=== PATIENT | male | born 1965 | race Caucasian/White ===

== ENCOUNTER 2018-02-09 09:45 | Outpatient (RCR) | payer BC ==
[2018-01-23 09:47] LABS: BASOPHILS % (AUTO) 0 % (0-10); EOSINOPHILS # (AUTO) 0.1 10^3/uL (0.0-0.3); EOSINOPHILS % (AUTO) 1 % (0-10); HEMATOCRIT 33 % (40-54); LYMPHOCYTES # (AUTO) 1.2 X 10^3 (1.0-4.0); LYMPHOCYTES % (AUTO) 20 % (12-44); MEAN CORPUSCULAR HEMOGLOBIN 33 PG (25-34); MEAN CORPUSCULAR HGB CONC 34 G/DL (32-36); MEAN CORPUSCULAR VOLUME 98 FL (80-99); MEAN PLATELET VOLUME 8.6 FL (7.4-10.4); MONOCYTES # (AUTO) 0.4 X 10^3 (0.0-1.0); MONOCYTES % (AUTO) 8 % (0-12); NEUTROPHILS # (AUTO) 4.1 X 10^3 (1.8-7.8); NEUTROPHILS % (AUTO) 71 % (42-75); PLATELET COUNT 230 10^3/uL (130-400); RED BLOOD COUNT 3.31 10^6/uL (4.35-5.85); WHITE BLOOD COUNT 5.8 10^3/uL (4.3-11.0)
[~2018-02-09] VITALS: Ht 173.4 cm; Wt 60.8 kg
[2018-02-09 15:08] LABS: BASOPHILS % (AUTO) 1 % (0-10); EOSINOPHILS % (AUTO) 1 % (0-10); HEMATOCRIT 30 % (40-54); LYMPHOCYTES # (AUTO) 1.5 X 10^3 (1.0-4.0); LYMPHOCYTES % (AUTO) 45 % (12-44); MEAN CORPUSCULAR HEMOGLOBIN 34 PG (25-34); MEAN CORPUSCULAR HGB CONC 34 G/DL (32-36); MEAN CORPUSCULAR VOLUME 101 FL (80-99); MONOCYTES # (AUTO) 0.5 X 10^3 (0.0-1.0); MONOCYTES % (AUTO) 14 % (0-12); NEUTROPHILS # (AUTO) 1.3 X 10^3 (1.8-7.8); NEUTROPHILS % (AUTO) 40 % (42-75); PLATELET COUNT 81 10^3/uL (130-400); RED BLOOD COUNT 2.92 10^6/uL (4.35-5.85); RED CELL DISTRIBUTION WIDTH 19.6 % (10.0-14.5); WHITE BLOOD COUNT 3.4 10^3/uL (4.3-11.0)
[2018-02-09 15:26] LABS: BUN/CREATININE RATIO 10; CALCIUM 9.6 MG/DL (8.5-10.1); CARBON DIOXIDE 22 MMOL/L (21-32); CHLORIDE 107 MMOL/L (98-107); CREATININE SERUM 0.77 MG/DL (0.60-1.30); GFR ESTIMATED > 60; GLUCOSE 84 MG/DL (70-105); POTASSIUM 3.6 MMOL/L (3.6-5.0); SODIUM 140 MMOL/L (135-145)
[2018-02-15] MEDS ORDERED: CARBOPLATIN 425 MG in D5W 50 ML IV(CANCER CTR) 50 ML IV SCH (08:45)
[2018-02-15] MEDS ORDERED: PALONOSETRON HCL 0.25 MG, DEXAMETHASONE INJECTION 10 MG in NS (IVPB) CANCER CENTER 50 ML IV SCH ×6 (08:45)
[2018-02-15] MEDS ORDERED: ONDANSETRON MDV (CANCER CENTER 16 MG, DEXAMETHASONE INJECTION 10 MG in NS (IVPB) CANCER... IV SCH (08:45)
[2018-02-15] MEDS ORDERED: ETOPOSIDE 170 MG in NORMAL SALINE (CANCER CENTER) 500 ML IV SCH (08:45)
[2018-02-15] MEDS ORDERED: NS IV 1000 ML (CANCER CTR) IV SCH (08:45)
== END 2018-02-15 09:01 | disposition home or self-care (01) ==
LOC: ONC 09:45
PROVIDERS: ATTEND Internal Medicine Hematology & Oncology
DX: C34.90 Malignant neoplasm of unspecified part of unspecified bronchus or lung (principal); D70.9 Neutropenia, unspecified
CPT/HCPCS: 36415; 80048; 85025; 99214

== ENCOUNTER → 2018-03-10 | Outpatient (CLI) | payer BC, OTHER ==
[~2018-03-10] MED LIST: CATHETER FLUSH 10 ML SYR IV PRN
--- NOTE | 2018-03-10 13:41 | Diagnostic Imaging Report ---
INDICATION: Small cell lung carcinoma. EXAMINATION: Axial imaging through the neck, chest, abdomen and pelvis was performed after the administration of intravenous contrast. COMPARISON: Correlation is made with prior CT chest, abdomen and pelvis from [facility] on 10/28/2017. No prior CT neck study is available for comparison. FINDINGS: CT neck: The visualized intracranial structures are unremarkable. The posterior nasopharynx and oropharynx are unremarkable. The larynx is unremarkable. No thyroid mass is identified. Submandibular and parotid glands appear to be symmetric. No definite jugulodigastric or posterior cervical lymphadenopathy is seen. There are soft tissue masses in the left supraclavicular region suggestive of enlarged lymph nodes. Largest loreta mass measures approximately 3.1 cm AP x 3.6 cm transverse, image 60 series 4. Solitary node just cephalad to the loreta mass is seen measuring 1.3 x 1.8 cm, image 54 series 4. IMPRESSION: Unremarkable CT of the neck apart from left supraclavicular lymphadenopathy. CT chest: No axillary lymphadenopathy is seen. Bulky mass within the mediastinum is again noted. The anterior component, anterior to the great vessels does appear smaller measuring 3.0 x 1.9 cm compared with 4.3 x 3.0 cm. Larger component in the middle mediastinum abutting the trachea anteriorly as well as on the right and left appears larger measuring 6.9 cm AP x 6.6 cm transverse compared with 4.4 x 5.9 cm. There is a large component which extends into the AP window. There is also large component in the subcarinal and left hilar region. Subcarinal component does contain some calcifications. This portion does appear to be slightly smaller measuring 7.6 x 3.6 cm compared with 9.9 x 3.8 cm. There continues to be encasement of left lower lobe bronchus with collapse of the left lower lobe. There is chronic inspissated mucus filling multiple segmental and subsegmental bronchi to the left lower lobe, similar to prior exam. Consolidated left lower lobe is inseparable from the left hilar mass component. Right hilum is unremarkable. There is a pericardial effusion measuring to a thickness of 17 mm compared with 11 mm on prior. Trace pleural fluid on the left is also seen. No right-sided effusion is identified. Centrilobular emphysematous changes in both lungs are noted. IMPRESSION: Mixed findings. Portions of the bulky mediastinal mass are smaller and other portions appear to be larger. There continues to be encasement and obstruction of the left lower lobe bronchus with complete collapse of the left lower lobe with chronic inspissated mucus within the left lower lobe. This is similar to prior. The pericardial effusion has increased since prior exam. CT abdomen and pelvis: No discrete liver mass is identified. The gallbladder is unremarkable. Abnormal soft tissue is noted at the level of the pancreatic body measuring approximately 3.9 cm AP x 3.5 cm transverse. This compares with 3.2 x 2.9 cm when measured by the same technique. No pancreatic ductal dilatation is seen. Spleen is unremarkable. No adrenal mass is identified. The kidneys are unremarkable. Aorta is nonaneurysmal. Bowel loops are normal caliber. No obstruction is seen. There is no ascites. No pelvic lymphadenopathy is seen. There is generalized bladder wall thickening, nonspecific. IMPRESSION: There has been some slight increase in prominence of abnormal soft tissue at the level of the pancreatic body when compared with exam from 10/28/2017. No hepatic masses are seen. No other areas of abnormality are detected. There is generalized bladder wall thickening which can be seen with cystitis versus chronic bladder outlet obstruction. Dictated by: Dictated on workstation # [id number]
--- NOTE | 2018-03-10 14:44 | Diagnostic Imaging Report ---
INDICATION: Small cell lung carcinoma. TECHNIQUE: Patient was administered 26.7 mCi technetium 99m MDP intravenously and whole-body imaging was performed after a three-hour delay. COMPARISON: No prior bone scans are available for comparison. FINDINGS: Normal uptake of activity by the axial and appendicular skeleton is seen. There is uptake by both kidneys with excretion into the urinary bladder. There are degenerative changes involving the medial compartment of the right knee. Mild uptake in the midthoracic spine is noted which may be degenerative as well. No foci are identified to suggest osseous metastatic disease. IMPRESSION: No scintigraphic evidence of osseous metastatic disease. Dictated by: Dictated on workstation # [id number]
== END ==
LOC: CARD 10:38
PROVIDERS: ATTEND Internal Medicine Hematology & Oncology
DX: Z01.89 Encounter for other specified special examinations (principal); C34.90 Malignant neoplasm of unspecified part of unspecified bronchus or lung; C77.9 Secondary and unspecified malignant neoplasm of lymph node, unspecified
CPT/HCPCS: 70491; 71260; 74176; 78306

== ENCOUNTER → 2018-03-20 | Outpatient (CLI) | payer OTHER | LOC: CARD 08:57 | PROVIDERS: ATTEND Internal Medicine Hematology & Oncology | DX: I31.3 Pericardial effusion (noninflammatory) (principal); I08.1 Rheumatic disorders of both mitral and tricuspid valves | CPT/HCPCS: 93306 ==

== ENCOUNTER 2018-03-27 10:33 | Outpatient (RCR) | payer BC, OTHER ==
[2018-02-20 11:32] LABS: BASOPHILS % (AUTO) 1 % (0-10); EOSINOPHILS # (AUTO) 0.1 10^3/uL (0.0-0.3); EOSINOPHILS % (AUTO) 1 % (0-10); HEMATOCRIT 34 % (40-54); HEMOGLOBIN 11.8 G/DL (13.3-17.7); LYMPHOCYTES # (AUTO) 1.2 X 10^3 (1.0-4.0); LYMPHOCYTES % (AUTO) 20 % (12-44); MEAN CORPUSCULAR HEMOGLOBIN 36 PG (25-34); MEAN CORPUSCULAR HGB CONC 35 G/DL (32-36); MEAN CORPUSCULAR VOLUME 103 FL (80-99); MEAN PLATELET VOLUME 9.3 FL (7.4-10.4); MONOCYTES # (AUTO) 0.5 X 10^3 (0.0-1.0); MONOCYTES % (AUTO) 7 % (0-12); NEUTROPHILS # (AUTO) 4.5 X 10^3 (1.8-7.8); NEUTROPHILS % (AUTO) 71 % (42-75); PLATELET COUNT 220 10^3/uL (130-400); RED BLOOD COUNT 3.27 10^6/uL (4.35-5.85); RED CELL DISTRIBUTION WIDTH 19.8 % (10.0-14.5); WHITE BLOOD COUNT 6.3 10^3/uL (4.3-11.0)
[2018-02-20 11:50] LABS: ALANINE AMINOTRANSFERASE 11 U/L (0-55); ALBUMIN 4.4 GM/DL (3.2-4.5); ALKALINE PHOSPHATASE 97 U/L (40-136); BILIRUBIN,TOTAL 0.3 MG/DL (0.1-1.0); BUN/CREATININE RATIO 10; CALCIUM 9.9 MG/DL (8.5-10.1); CARBON DIOXIDE 24 MMOL/L (21-32); CHLORIDE 106 MMOL/L (98-107); CREATININE SERUM 0.77 MG/DL (0.60-1.30); GFR ESTIMATED > 60; GLUCOSE 120 MG/DL (70-105); POTASSIUM 3.9 MMOL/L (3.6-5.0); SODIUM 138 MMOL/L (135-145); TOTAL PROTEIN 7.5 GM/DL (6.4-8.2)
[2018-02-27 10:04] LABS: BASOPHILS % (AUTO) 0 % (0-10); EOSINOPHILS # (AUTO) 0.1 10^3/uL (0.0-0.3); EOSINOPHILS % (AUTO) 2 % (0-10); HEMATOCRIT 30 % (40-54); LYMPHOCYTES # (AUTO) 1.1 X 10^3 (1.0-4.0); LYMPHOCYTES % (AUTO) 20 % (12-44); MEAN CORPUSCULAR HEMOGLOBIN 36 PG (25-34); MEAN CORPUSCULAR HGB CONC 33 G/DL (32-36); MEAN CORPUSCULAR VOLUME 106 FL (80-99); MEAN PLATELET VOLUME 8.8 FL (7.4-10.4); MONOCYTES # (AUTO) 0.1 X 10^3 (0.0-1.0); MONOCYTES % (AUTO) 2 % (0-12); NEUTROPHILS % (AUTO) 76 % (42-75); PLATELET COUNT 257 10^3/uL (130-400); RED BLOOD COUNT 2.81 10^6/uL (4.35-5.85); RED CELL DISTRIBUTION WIDTH 18.4 % (10.0-14.5); WHITE BLOOD COUNT 5.3 10^3/uL (4.3-11.0)
[2018-02-27 10:16] LABS: BUN/CREATININE RATIO 10; CALCIUM 9.7 MG/DL (8.5-10.1); CARBON DIOXIDE 26 MMOL/L (21-32); CHLORIDE 106 MMOL/L (98-107); GFR ESTIMATED > 60; GLUCOSE 122 MG/DL (70-105); POTASSIUM 4.1 MMOL/L (3.6-5.0); SODIUM 138 MMOL/L (135-145)
[2018-03-07 10:58] LABS: BASOPHILS % (AUTO) 1 % (0-10); EOSINOPHILS # (AUTO) 0.1 10^3/uL (0.0-0.3); EOSINOPHILS % (AUTO) 2 % (0-10); HEMATOCRIT 33 % (40-54); HEMOGLOBIN 11.1 G/DL (13.3-17.7); LYMPHOCYTES # (AUTO) 0.8 X 10^3 (1.0-4.0); LYMPHOCYTES % (AUTO) 33 % (12-44); MEAN CORPUSCULAR HEMOGLOBIN 36 PG (25-34); MEAN CORPUSCULAR HGB CONC 33 G/DL (32-36); MEAN CORPUSCULAR VOLUME 107 FL (80-99); MEAN PLATELET VOLUME 8.6 FL (7.4-10.4); MONOCYTES # (AUTO) 0.3 X 10^3 (0.0-1.0); MONOCYTES % (AUTO) 10 % (0-12); NEUTROPHILS # (AUTO) 1.3 X 10^3 (1.8-7.8); NEUTROPHILS % (AUTO) 54 % (42-75); PLATELET COUNT 162 10^3/uL (130-400); RED CELL DISTRIBUTION WIDTH 18.3 % (10.0-14.5); WHITE BLOOD COUNT 2.4 10^3/uL (4.3-11.0)
[2018-03-07 11:19] LABS: BUN/CREATININE RATIO 12; CALCIUM 9.9 MG/DL (8.5-10.1); CARBON DIOXIDE 25 MMOL/L (21-32); CHLORIDE 107 MMOL/L (98-107); CREATININE SERUM 0.75 MG/DL (0.60-1.30); GFR ESTIMATED > 60; GLUCOSE 99 MG/DL (70-105); SODIUM 140 MMOL/L (135-145)
[2018-03-13 11:11] LABS: BASOPHILS % (AUTO) 0 % (0-10); EOSINOPHILS # (AUTO) 0.1 10^3/uL (0.0-0.3); EOSINOPHILS % (AUTO) 2 % (0-10); HEMATOCRIT 35 % (40-54); HEMOGLOBIN 11.7 G/DL (13.3-17.7); LYMPHOCYTES % (AUTO) 33 % (12-44); MEAN CORPUSCULAR HEMOGLOBIN 36 PG (25-34); MEAN CORPUSCULAR HGB CONC 34 G/DL (32-36); MEAN CORPUSCULAR VOLUME 107 FL (80-99); MEAN PLATELET VOLUME 8.7 FL (7.4-10.4); MONOCYTES # (AUTO) 0.4 X 10^3 (0.0-1.0); MONOCYTES % (AUTO) 14 % (0-12); NEUTROPHILS # (AUTO) 1.5 X 10^3 (1.8-7.8); NEUTROPHILS % (AUTO) 52 % (42-75); PLATELET COUNT 190 10^3/uL (130-400); RED BLOOD COUNT 3.24 10^6/uL (4.35-5.85); RED CELL DISTRIBUTION WIDTH 17.5 % (10.0-14.5)
[2018-03-13 11:31] LABS: ALANINE AMINOTRANSFERASE 7 U/L (0-55); ALBUMIN 4.3 GM/DL (3.2-4.5); ALKALINE PHOSPHATASE 97 U/L (40-136); BILIRUBIN,TOTAL 0.3 MG/DL (0.1-1.0); BUN/CREATININE RATIO 9; CALCIUM 9.8 MG/DL (8.5-10.1); CARBON DIOXIDE 24 MMOL/L (21-32); CHLORIDE 108 MMOL/L (98-107); CREATININE SERUM 0.76 MG/DL (0.60-1.30); GFR ESTIMATED > 60; GLUCOSE 103 MG/DL (70-105); POTASSIUM 3.9 MMOL/L (3.6-5.0); SODIUM 139 MMOL/L (135-145); TOTAL PROTEIN 7.2 GM/DL (6.4-8.2)
[2018-03-15 12:30] LABS: BUN/CREATININE RATIO 13; CALCIUM 9.6 MG/DL (8.5-10.1); CARBON DIOXIDE 22 MMOL/L (21-32); CHLORIDE 107 MMOL/L (98-107); CREATININE SERUM 0.77 MG/DL (0.60-1.30); GFR ESTIMATED > 60; GLUCOSE 84 MG/DL (70-105); POTASSIUM 3.6 MMOL/L (3.6-5.0); SODIUM 140 MMOL/L (135-145)
[2018-03-15 12:31] LABS: BASOPHILS % (AUTO) 1 % (0-10); EOSINOPHILS % (AUTO) 1 % (0-10); HEMATOCRIT 30 % (40-54); LYMPHOCYTES # (AUTO) 1.5 X 10^3 (1.0-4.0); LYMPHOCYTES % (AUTO) 45 % (12-44); MEAN CORPUSCULAR HEMOGLOBIN 34 PG (25-34); MEAN CORPUSCULAR HGB CONC 34 G/DL (32-36); MEAN CORPUSCULAR VOLUME 101 FL (80-99); MONOCYTES # (AUTO) 0.5 X 10^3 (0.0-1.0); MONOCYTES % (AUTO) 14 % (0-12); NEUTROPHILS # (AUTO) 1.3 X 10^3 (1.8-7.8); NEUTROPHILS % (AUTO) 40 % (42-75); PLATELET COUNT 81 10^3/uL (130-400); RED BLOOD COUNT 2.92 10^6/uL (4.35-5.85); RED CELL DISTRIBUTION WIDTH 19.6 % (10.0-14.5); WHITE BLOOD COUNT 3.4 10^3/uL (4.3-11.0)
[2018-03-20 10:17] LABS: BASOPHILS % (AUTO) 0 % (0-10); EOSINOPHILS % (AUTO) 1 % (0-10); HEMATOCRIT 34 % (40-54); HEMOGLOBIN 11.3 G/DL (13.3-17.7); LYMPHOCYTES # (AUTO) 1.1 X 10^3 (1.0-4.0); LYMPHOCYTES % (AUTO) 23 % (12-44); MEAN CORPUSCULAR HEMOGLOBIN 36 PG (25-34); MEAN CORPUSCULAR HGB CONC 33 G/DL (32-36); MEAN CORPUSCULAR VOLUME 109 FL (80-99); MEAN PLATELET VOLUME 9.1 FL (7.4-10.4); MONOCYTES # (AUTO) 0.1 X 10^3 (0.0-1.0); MONOCYTES % (AUTO) 2 % (0-12); NEUTROPHILS # (AUTO) 3.4 X 10^3 (1.8-7.8); NEUTROPHILS % (AUTO) 74 % (42-75); PLATELET COUNT 228 10^3/uL (130-400); RED BLOOD COUNT 3.11 10^6/uL (4.35-5.85); RED CELL DISTRIBUTION WIDTH 15.3 % (10.0-14.5); WHITE BLOOD COUNT 4.6 10^3/uL (4.3-11.0)
[2018-03-20 10:41] LABS: BUN/CREATININE RATIO 11; CALCIUM 9.8 MG/DL (8.5-10.1); CARBON DIOXIDE 26 MMOL/L (21-32); CHLORIDE 106 MMOL/L (98-107); GFR ESTIMATED > 60; GLUCOSE 96 MG/DL (70-105); POTASSIUM 4.2 MMOL/L (3.6-5.0); SODIUM 139 MMOL/L (135-145)
[~2018-03-27] VITALS: Ht 173.4 cm; Wt 60.8 kg
[~2018-03-27 10:33] MED LIST changes: +CARBOPLATIN 425 MG in D5W 50 ML IV(CANCER CTR) 50 ML IV SCH; -CATHETER FLUSH 10 ML SYR IV PRN; +ETOPOSIDE 170 MG in NORMAL SALINE (CANCER CENTER) 500 ML IV SCH; +NS IV 1000 ML (CANCER CTR) IV SCH; +ONDANSETRON MDV (CANCER CENTER 16 MG, DEXAMETHASONE INJECTION 10 MG in NS (IVPB) CANCER... IV SCH; +PALONOSETRON HCL 0.25 MG, DEXAMETHASONE INJECTION 10 MG in NS (IVPB) CANCER CENTER 50 ML IV SCH
[2018-03-27 10:41] LABS: BASOPHILS % (AUTO) 1 % (0-10); EOSINOPHILS % (AUTO) 2 % (0-10); HEMATOCRIT 34 % (40-54); HEMOGLOBIN 11.7 G/DL (13.3-17.7); LYMPHOCYTES # (AUTO) 0.9 X 10^3 (1.0-4.0); LYMPHOCYTES % (AUTO) 38 % (12-44); MEAN CORPUSCULAR HEMOGLOBIN 37 PG (25-34); MEAN CORPUSCULAR HGB CONC 34 G/DL (32-36); MEAN CORPUSCULAR VOLUME 108 FL (80-99); MEAN PLATELET VOLUME 8.9 FL (7.4-10.4); MONOCYTES # (AUTO) 0.4 X 10^3 (0.0-1.0); MONOCYTES % (AUTO) 15 % (0-12); NEUTROPHILS % (AUTO) 44 % (42-75); PLATELET COUNT 139 10^3/uL (130-400); RED BLOOD COUNT 3.15 10^6/uL (4.35-5.85); RED CELL DISTRIBUTION WIDTH 14.5 % (10.0-14.5); WHITE BLOOD COUNT 2.3 10^3/uL (4.3-11.0)
[2018-03-27 11:02] LABS: BUN/CREATININE RATIO 9; CARBON DIOXIDE 27 MMOL/L (21-32); CHLORIDE 106 MMOL/L (98-107); CREATININE SERUM 0.77 MG/DL (0.60-1.30); GFR ESTIMATED > 60; GLUCOSE 97 MG/DL (70-105); SODIUM 140 MMOL/L (135-145)
[2018-04-03 13:08] LABS: BASOPHILS % (AUTO) 1 % (0-10); EOSINOPHILS # (AUTO) 0.1 10^3/uL (0.0-0.3); EOSINOPHILS % (AUTO) 1 % (0-10); HEMATOCRIT 37 % (40-54); HEMOGLOBIN 12.5 G/DL (13.3-17.7); LYMPHOCYTES # (AUTO) 1.1 X 10^3 (1.0-4.0); LYMPHOCYTES % (AUTO) 28 % (12-44); MEAN CORPUSCULAR HEMOGLOBIN 37 PG (25-34); MEAN CORPUSCULAR HGB CONC 34 G/DL (32-36); MEAN CORPUSCULAR VOLUME 107 FL (80-99); MEAN PLATELET VOLUME 9.2 FL (7.4-10.4); MONOCYTES # (AUTO) 0.6 X 10^3 (0.0-1.0); MONOCYTES % (AUTO) 14 % (0-12); NEUTROPHILS # (AUTO) 2.3 X 10^3 (1.8-7.8); NEUTROPHILS % (AUTO) 56 % (42-75); PLATELET COUNT 193 10^3/uL (130-400); RED CELL DISTRIBUTION WIDTH 13.9 % (10.0-14.5); WHITE BLOOD COUNT 4.1 10^3/uL (4.3-11.0)
[2018-04-03 13:30] LABS: ALANINE AMINOTRANSFERASE 9 U/L (0-55); ALBUMIN 4.2 GM/DL (3.2-4.5); ALKALINE PHOSPHATASE 93 U/L (40-136); BILIRUBIN,TOTAL 0.2 MG/DL (0.1-1.0); BUN/CREATININE RATIO 6; CALCIUM 9.9 MG/DL (8.5-10.1); CARBON DIOXIDE 24 MMOL/L (21-32); CHLORIDE 105 MMOL/L (98-107); CREATININE SERUM 0.78 MG/DL (0.60-1.30); GFR ESTIMATED > 60; GLUCOSE 112 MG/DL (70-105); POTASSIUM 3.9 MMOL/L (3.6-5.0); SODIUM 139 MMOL/L (135-145); TOTAL PROTEIN 7.4 GM/DL (6.4-8.2)
== END 2018-04-03 12:32 | disposition home or self-care (01) ==
LOC: ONC 10:33
PROVIDERS: ATTEND Internal Medicine Hematology & Oncology
DX: Z51.11 Encounter for antineoplastic chemotherapy (principal); C34.90 Malignant neoplasm of unspecified part of unspecified bronchus or lung; C78.7 Secondary malignant neoplasm of liver and intrahepatic bile duct; C78.89 Secondary malignant neoplasm of other digestive organs; C79.70 Secondary malignant neoplasm of unspecified adrenal gland; C77.3 Secondary and unspecified malignant neoplasm of axilla and upper limb lymph nodes; G62.0 Drug-induced polyneuropathy; T45.1X5A Adverse effect of antineoplastic and immunosuppressive drugs, initial encounter
CPT/HCPCS: 36415; 80048; 80053; 83615; 85025; 96375; 96413; 96417; 99214

== ENCOUNTER → 2018-04-24 | Outpatient (CLI) | payer OTHER ==
[~2018-04-24] MED LIST changes: +BARIUM SUSPENSION 2.1% (VANILLA SILQ) 450 ML PO ONE; -CARBOPLATIN 425 MG in D5W 50 ML IV(CANCER CTR) 50 ML IV SCH; +CATHETER FLUSH 10 ML SYR IV PRN; -ETOPOSIDE 170 MG in NORMAL SALINE (CANCER CENTER) 500 ML IV SCH; +IOHEXOL 350 MG/ML 100 ML (OMNIPAQUE 350) VIAL IV ONE; +NS 250 ML (IVPB) BAG IV ONE; -NS IV 1000 ML (CANCER CTR) IV SCH; -ONDANSETRON MDV (CANCER CENTER 16 MG, DEXAMETHASONE INJECTION 10 MG in NS (IVPB) CANCER... IV SCH; -PALONOSETRON HCL 0.25 MG, DEXAMETHASONE INJECTION 10 MG in NS (IVPB) CANCER CENTER 50 ML IV SCH
--- NOTE | 2018-04-24 13:17 | Diagnostic Imaging Report ---
INDICATION: Metastatic small cell carcinoma. Study is performed for followup. TECHNIQUE: Pre- and post-contrast axial imaging of the abdomen and pelvis with postcontrast axial imaging through the neck and chest was performed. COMPARISON: Comparison is made with prior CT from 03/10/2018. CT NECK: The visualized intracranial structures remain unremarkable. Bilateral orbits and globes are unremarkable. Posterior nasopharynx, oropharynx, and larynx are unremarkable. No thyroid masses are seen. The submandibular and parotid glands appear to be symmetric bilaterally. Posterior cervical space is unremarkable. No lymphadenopathy is seen in the posterior cervical or jugulodigastric regions. The previously noted soft tissue fullness in the left supraclavicular region is again noted measuring approximately 3.9 cm transverse x 2.8 cm AP compared with 3.6 cm x 3.1 cm. Lymph node just cephalad to this measures 2.0 x 1.3 cm compared with 1.8 x 1.3 cm. Right supraclavicular region is unremarkable. IMPRESSION: Slight increase in size of left sternoclavicular lymphadenopathy when compared to examination from 03/10/2018. CT CHEST: Bulky mediastinal mass is again seen. The anterior component measures 3.1 x 2.0 cm compared with 3.0 x 1.9 cm. Larger component in the middle mediastinum abutting the trachea and aortic arch measures 7.8 cm AP x 7.3 cm transverse. This compares with 6.9 x 6.6 cm on prior. Subcarinal component measures 7.5 x 3.1 cm compared with 7.6 x 3.6 cm. Encasement of the left mainstem bronchus is again seen with collapse of the left lower lobe, similar to prior exam. Mucus plugging involving numerous left lower lobe segmental and subsegmental bronchi is noted and similar to prior study. The right hilum remains unremarkable. Previously noted pericardial effusion has significantly decreased in size and is now small. The pleural effusion on the left has increased and now layers dependently by a thickness of 2.4 cm. No axillary lymphadenopathy is identified. Parenchymal evaluation does show centrilobular emphysematous changes. There is a tiny subpleural nodule in the lateral left upper lobe, image 20, which appears stable. No new parenchymal mass is seen. IMPRESSION: 1. Decrease in size of pericardial effusion with increase in size of left pleural effusion when compared with prior CT 03/10/2018. 2. There has been some increase in size of the bulky mediastinal mass when compared with prior CT, although the subcarinal portion does appear to be slightly smaller. There continues to be encasement of the left lower lobe bronchus with left lower lobe collapse. There is mucus plugging of numerous left lower lobe bronchi. Right hilum and right lung are unremarkable. CT ABDOMEN AND PELVIS: No focal liver mass is identified. The gallbladder is unremarkable. Soft tissue mass-like density adjacent to the pancreatic body at the level of the celiac axis is again noted and now measures 4.2 cm AP by 4.1 cm transverse compared with 3.9 cm x 3.5 cm. No pancreatic or biliary ductal dilatation is seen. The spleen is unremarkable. No adrenal mass is detected. The kidneys are unremarkable. The aorta is nonaneurysmal. The small and large bowel loops are normal in caliber. No obstruction is seen. There is no ascites. There is sigmoid diverticulosis without evidence of acute diverticulitis. The bladder is unremarkable. No pelvic lymphadenopathy is seen. Bony structures are nonacute. IMPRESSION: There has been mild increase in size of the lobulated soft tissue mass adjacent to the pancreatic body when compared with prior CT from 03/10/2018. The remainder of the CT of the abdomen and pelvis is stable. Dictated by: Dictated on workstation # [id number]
--- NOTE | 2018-04-24 18:12 | Diagnostic Imaging Report ---
INDICATION: Metastatic small cell carcinoma. TECHNIQUE: The patient was administered 25.8 mCi technetium 99m MDP intravenously and whole-body imaging was performed after a three-hour delay. COMPARISON: Comparison is made with prior whole body bone scan from 03/10/2018. FINDINGS: Normal uptake of activity into the kidneys with excretion into the urinary bladder is noted. There is uptake by the axial and appendicular skeleton. There are degenerative changes involving the right knee. No abnormal foci of tracer accumulation is seen to suggest osseous metastatic disease. IMPRESSION: Stable whole body bone scan. There is no scintigraphic evidence of osseous metastatic disease. Dictated by: Dictated on workstation # [id number]
== END ==
LOC: CARD 12:01
PROVIDERS: ATTEND Internal Medicine Hematology & Oncology
DX: C34.12 Malignant neoplasm of upper lobe, left bronchus or lung (principal); C77.0 Secondary and unspecified malignant neoplasm of lymph nodes of head, face and neck; J90 Pleural effusion, not elsewhere classified; I31.3 Pericardial effusion (noninflammatory); K86.9 Disease of pancreas, unspecified
CPT/HCPCS: 36415; 70491; 71260; 74178; 78306; 96375; 96413; 96417

== ENCOUNTER → 2018-05-08 | Outpatient (CLI) | payer OTHER ==
[~2018-05-08] MED LIST changes: -BARIUM SUSPENSION 2.1% (VANILLA SILQ) 450 ML PO ONE; -CATHETER FLUSH 10 ML SYR IV PRN; +DEXA4TAB PO; +GADOBUTROL 7.5 MMOL/7.5 ML (GADAVIST) VIAL IV ONE; -IOHEXOL 350 MG/ML 100 ML (OMNIPAQUE 350) VIAL IV ONE; +LORA0.5T PO; -NS 250 ML (IVPB) BAG IV ONE; +ONDA8TAB6 PO; +OXYC-529 PO; +OXYC10TA55 PO; +PANT40TA2 PO; +PROC-1 PO
--- NOTE | 2018-05-08 11:59 | Diagnostic Imaging Report ---
CLINICAL INDICATION: Patient with recent diagnosis of lung cancer. No brain symptoms or complaints. Evaluate for brain metastasis. EXAMINATION: MRI of the brain performed without and with 5 cc of Gadavist IV contrast. Sequences include axial DWI, ADC map, coronal gradient echo, axial T2, axial FLAIR, axial T1, axial T1 post IV contrast, coronal T1 fat-sat post IV contrast, and sagittal T1 post IV contrast. COMPARISON: None. FINDINGS: There are four areas of parenchymal enhancement involving the cortical and subcortical regions of the right and left cerebral hemispheres. There is a focal area of enhancement measuring 4 mm x 3 mm involving the parasagittal posterior right frontal lobe near the vertex seen on series 8, image 21. There is a very subtle area of enhancement measuring 4 mm involving the posterior right frontal lobe postcentral gyrus region seen on series 8, image 20. There is a very subtle area of enhancement measuring 7 mm involving the left parietal lobe seen on series 8, image 17. There is a focal area of enhancement measuring 5 mm x 3 mm in the left occipital lobe periventricular region, seen on series 8, image 9. Most of these areas demonstrate diffusion restriction. There are focal areas of diffusion restriction involving the right and left cerebellar hemispheres which demonstrate no enhancement. Given that there are areas of subtle enhancement with diffusion restriction, other etiologies of metastatic disease or subacute infarcts cannot be completely excluded. There is associated subtle high T2 signal involving the lesion in the left parietal lobe, left occipital lobe periventricular region, and parasagittal right frontal lobe areas. There is no evidence of intracranial hemorrhage, brain herniation, or midline shift. The brain parenchymal volume appears appropriate for patient's age. The [place] vascular structures show no gross abnormality as visualized. The pituitary gland, sella, and suprasellar regions are unremarkable as visualized. The extracranial soft tissue, skull, and orbits are unremarkable. There is no bony osseous metastatic lesion seen. IMPRESSION: 1: There are four small areas of subtle enhancement involving the bilateral cerebral hemispheres most concerning for metastatic disease. Most of these areas demonstrate diffusion restriction. Other etiology such as subacute scattered infarcts is suspected to be less likely. 2: There is a focal area of diffusion restriction involving the right and left cerebellar regions with no discernible enhancement on this exam. These findings may represent subtle areas of metastasis. Focal infarcts cannot be completely excluded. He should be closely followed on subsequent imaging. Dictated by: Dictated on workstation # [id number]
== END ==
LOC: RAD 10:46
PROVIDERS: ATTEND Nurse Practitioner Adult Health
DX: C34.32 Malignant neoplasm of lower lobe, left bronchus or lung (principal); G93.89 Other specified disorders of brain; R51 Headache
CPT/HCPCS: 70553

== ENCOUNTER 2018-05-09 05:42 | Outpatient (CLI) | payer OTHER ==
[~2018-05-09] VITALS: Ht 175.3 cm; Wt 59.0 kg
[2018-05-09] MEDS ORDERED: DEXA4TAB PO (10:08)
[2018-05-09] MEDS ORDERED: LORA0.5T PO (10:08)
[2018-05-09] MEDS ORDERED: ONDA8TAB6 PO (10:08)
[2018-05-09] MEDS ORDERED: OXYC10TA55 PO (10:08)
[2018-05-09] MEDS ORDERED: OXYC-529 PO (10:08)
[2018-05-09] MEDS ORDERED: PANT40TA2 PO (10:08)
[2018-05-09] MEDS ORDERED: PROC-1 PO (10:08)
== END 2018-05-09 10:19 | disposition home or self-care (01) ==
LOC: PREOP 05:42
PROVIDERS: ATTEND Surgery
DX: Z01.818 Encounter for other preprocedural examination (principal)

== ENCOUNTER 2018-05-11 12:01 | Day surgery (SDC) | payer OTHER ==
[~2018-05-11] VITALS: Ht 175.3 cm; Wt 59.0 kg
--- NOTE | 2018-05-11 09:26 | History & Physicial ---
History of Present Illness History of Present Illness Reason for visit/HPI to undergo [id number] placement to facilitate palliative chemotherapy regarding advanced small cell carcinoma of the lung. Date of Admission 05/11/18 Date Seen by a Provider: May 11, 2018 Time Seen by a Provider: 09:22 I consulted on this patient on 05/11/18 09:21 Attending Physician Liz Jenkins MD Admitting Physician No,Local Physician Consult Allergies and Home Medications Allergies Coded Allergies: No Known Drug Allergies (Unverified , 02/15/18) Home Medications Dexamethasone 4 Mg Tablet, 4 MG PO TID, (Reported) Lorazepam 0.5 Mg Tablet, 0.5 MG PO TID PRN for ANXIETY, (Reported) Ondansetron HCl 8 Mg Tablet, 8 MG PO Q4H PRN for NAUSEA/VOMITING-1ST LINE, ( Reported) Oxycodone HCl 5 Mg Tablet, 5-10 MG PO Q4H PRN for PAIN-MILD TO MODERATE, ( Reported) Oxycodone HCl 10 Mg Tab.er.12h, 10 MG PO BID, (Reported) Pantoprazole Sodium 40 Mg Tablet.dr, 40 MG PO DAILY, (Reported) Prochlorperazine Maleate 10 Mg Tablet, 10 MG PO Q6H PRN for NAUSEA/VOMITING-2ND LINE, (Reported) Patient Home Medication List Home Medication List Reviewed: Yes Past Semojpo-Oygtjx-Moszbo Hx Patient Social History Marrital Status: Employed/Student: unemployed Type Used: Cigarettes Recent Hopitalizations: No Seasonal Allergies Seasonal Allergies: No Respiratory Yes Chronic Bronchitis Cardiovascular No Neurological No Genitourinary No Gastrointestinal No Musculoskeletal Yes Chronic Back Pain Endocrine History of Endocrine Disorders: No HEENT History of HEENT Disorders: No Cancer Yes Brain, Lung Psychosocial History of Psychiatric Problem: No Behavioral Health Disorders: Depression Review of Systems Constitutional: malaise, weakness EENTM: no symptoms reported Respiratory: see HPI Cardiovascular: no symptoms reported Gastrointestinal: no symptoms reported Genitourinary: no symptoms reported Musculoskeletal: see HPI Skin: no symptoms reported Psychiatric/Neurological: See HPI Physical Exam Vital Signs Capillary Refill : Height, Weight, BMI Height: 5'9.00" Weight: 130lbs. 0.0oz. 58.792645sp; 19.2 BMI Method: General Appearance: No Apparent Distress Neck: Normal Inspection Respiratory: Decreased Breath Sounds Cardiovascular: Regular Rate, Rhythm Gastrointestinal: Non Tender, Soft Extremity: Normal Inspection Neurologic/Psychiatric: Alert, Oriented x3 Skin: Warm/Dry Assessment/Plan Assessment and Plan gentleman with advanced small cell carcinoma of the lung with cerebral metastasis. 4 Zfjxwl-l-Atri placement. Admission Diagnosis Admission Status: Other (Outpt Proc) LIZ JENKINS MD May 11, 2018 09:26
[~2018-05-11 12:01] MED LIST changes: -GADOBUTROL 7.5 MMOL/7.5 ML (GADAVIST) VIAL IV ONE
[2018-05-11 12:10] VITALS: BP 118/87
[2018-05-11] MEDS ORDERED: LACTATED RINGERS 1,000 ML IV PRN (12:39)
[2018-05-11] MEDS ORDERED: ceFAZolin INJECTION 1,000 MG in NS (IVPB) 50 ML IV ONE (12:45)
--- NOTE | 2018-05-11 12:58 | Progress Note-Pre Operative ---
Pre-Operative Progress Note H&P Reviewed The H&P was reviewed, patient examined and no changes noted. Date Seen by Provider: May 11, 2018 Time Seen by Provider: 11:00 Date H&P Reviewed: May 11, 2018 Time H&P Reviewed: 12:57 Pre-Operative Diagnosis: Small cell carcinoma of lung LIZ JENKINS MD May 11, 2018 12:58
[2018-05-11] MEDS ORDERED: CATHETER FLUSH 10 ML SYR IV PRN (13:15)
[2018-05-11] MEDS ORDERED: KETAMINE HCL 100 MG/ML 5 ML VIAL ONE (13:43)
[2018-05-11] MEDS ORDERED: PROPOFOL INJECTION 50 ML IV ONE (13:56)
[2018-05-11] MEDS ORDERED: MIDAZOLAM 2 MG/2 ML (VERSED) VIAL ONE ×2 (13:56→14:39)
[2018-05-11] MEDS ORDERED: BUP/EPI 0.5% 1:200,000 (SENSORCAINE) 30 ML VIAL ONE (14:03)
[2018-05-11] MEDS ORDERED: 0.9% SODIUM CHLORIDE PF INJ 20 ML VIAL ONE (14:03)
[2018-05-11] MEDS ORDERED: HEParin (CENTRAL IV FLUSH) 500 UNIT/5 ML SYR ONE (14:03)
--- NOTE | 2018-05-11 14:19 | Discharge Inst-Simple/Standard ---
Discharge Inst-Standard Discharge Medications New, Converted or Re-Newed RX: Other Patient Instructions/Follow Up Plan of Care/Instructions/FU: May use the port. Activity as Tolerated: Yes Discharge Diet: No Restrictions LIZ JENKINS MD May 11, 2018 14:19
--- NOTE | 2018-05-11 15:19 | Operative Report ---
Operative Report Date of Procedure/Surgery May 11, 2018 Surgeon (s) LIZ JENKINS MD Telephone Coin Box Collector (s): N/A Post-Operative Diagnosis same Procedure Performed Powerport placement Description of Procedure Anesthesia Type: MAC Estimated blood loss (mL): minimal Specimen(s) collected/removed none Description of the Procedure Indication for the procedure: This gentleman is receiving systemic therapy and radiation, to manage metastatic small cell carcinoma of the lung. To facilitate this, placing a PowerPort was felt to be reasonable. Informed consent was obtained after reviewing the details of the operation, complications of hematoma, bacteremia and malfunction of the catheter requiring replacement. Description of procedure: He was placed supine on the operative table and our anesthesiologist administered sedation, monitoring his vital signs. A gram of Ancef was administered intravenously as prophylaxis against wound infection. Sequential compression devices were placed around his legs, to minimize the risk of venous thrombosis. His neck and upper chest were prepared and draped in the usual sterile manner. Local anesthesia was achieved using 0.5 percent Marcaine with epinephrine. Right internal jugular vein was localized using a 12 MHz ultrasound probe and a floppy guidewire introduced into the heart, under fluoroscopy. A subcutaneous pocket was created over the infraclavicular fossa and a Pranav catheter brought into the neck, in a retrograde fashion. It was then advanced into the heart, under fluoroscopy, using the peel-away sheath. The catheter was then pulled back to the superior vena cava, under fluoroscopy and connected to the PowerPort , that had been primed with heparinized saline. I was able to aspirate and flush the system without any difficulty. The port was then secured to the pectoralis muscle using 2-0 Prolene sutures. The incision was then closed using 3-0 Vicryl for the dermal layer and 4-0 Vicryl for skin, in a subcuticular fashion. He tolerated the procedure well and was taken back to the nursing area in a stable condition. Findings of the Procedure see op report Allergies and Home Medications Allergies Coded Allergies: No Known Drug Allergies (Unverified , 02/15/18) Home Medications Dexamethasone 4 Mg Tablet, 4 MG PO TID, (Reported) Lorazepam 0.5 Mg Tablet, 0.5 MG PO TID PRN for ANXIETY, (Reported) Ondansetron HCl 8 Mg Tablet, 8 MG PO Q4H PRN for NAUSEA/VOMITING-1ST LINE, ( Reported) Oxycodone HCl 5 Mg Tablet, 5-10 MG PO Q4H PRN for PAIN-MILD TO MODERATE, ( Reported) Oxycodone HCl 10 Mg Tab.er.12h, 10 MG PO BID, (Reported) Pantoprazole Sodium 40 Mg Tablet.dr, 40 MG PO DAILY, (Reported) Prochlorperazine Maleate 10 Mg Tablet, 10 MG PO Q6H PRN for NAUSEA/VOMITING-2ND LINE, (Reported) Patient Home Medication List Home Medication List Reviewed: Yes LIZ JENKINS MD May 11, 2018 15:18
--- NOTE | 2018-05-11 15:35 | Anesthesia-General Post-Op ---
MAC Patient Condition Mental Status/LOC: Same as Preop Cardiovascular: Satisfactory Nausea/Vomiting: Absent Respiratory: Satisfactory Pain: Controlled Complications: Absent Post Op Complications Complications None Follow Up Care/Instructions Patient Instructions None needed. Anesthesiology Discharge Order Discharge Order Patient is doing well, no complaints, stable vital signs, no apparent adverse anesthesia problems. No complications reported per nursing. ANGEL SRINIVASAN CRNA May 11, 2018 15:35
[2018-05-11] MEDS ORDERED: morphine INJ 10 MG/ML 1ML (SYR OR VIAL) IVP ONE (15:45)
[2018-05-11] MEDS ORDERED: ONDANSETRON 4 MG/2 ML (SDV) Z0FRAN IVP PRN (15:45)
[2018-05-11 15:55] VITALS: BP 119/86
--- NOTE | 2018-05-11 16:21 | Diagnostic Imaging Report ---
Indication: Fluoroscopy during Groshong catheter placement. Fluoroscopy was provided in the OR during a Groshong catheter placement. 83 seconds of fluoroscopy was utilized. Single image over the upper chest shows a right-sided catheter with tip overlying the SVC. Impression: Fluoroscopy during Groshong catheter placement. Dictated by: Dictated on workstation # [id number]
[2018-05-11 16:25] VITALS: BP 116/83
[2018-05-11 16:33] VITALS: BP 116/83
== END 2018-05-11 16:33 | disposition home or self-care (01) ==
LOC: SDC 12:01
PROVIDERS: ATTEND Surgery
DX: C34.92 Malignant neoplasm of unspecified part of left bronchus or lung (principal); C79.31 Secondary malignant neoplasm of brain; J44.9 Chronic obstructive pulmonary disease, unspecified; F17.210 Nicotine dependence, cigarettes, uncomplicated; K21.9 Gastro-esophageal reflux disease without esophagitis; Z79.899 Other long term (current) drug therapy
CPT/HCPCS: 87081

== ENCOUNTER 2018-06-23 10:50 | Outpatient (RCR) | payer OTHER ==
[2018-04-10 13:32] LABS: BASOPHILS % (AUTO) 1 % (0-10); EOSINOPHILS % (AUTO) 0 % (0-10); HEMATOCRIT 33 % (40-54); HEMOGLOBIN 11.3 G/DL (13.3-17.7); LYMPHOCYTES # (AUTO) 0.8 X 10^3 (1.0-4.0); LYMPHOCYTES % (AUTO) 13 % (12-44); MEAN CORPUSCULAR HEMOGLOBIN 36 PG (25-34); MEAN CORPUSCULAR HGB CONC 34 G/DL (32-36); MEAN CORPUSCULAR VOLUME 105 FL (80-99); MEAN PLATELET VOLUME 8.9 FL (7.4-10.4); MONOCYTES # (AUTO) 0.6 X 10^3 (0.0-1.0); MONOCYTES % (AUTO) 10 % (0-12); NEUTROPHILS # (AUTO) 4.6 X 10^3 (1.8-7.8); NEUTROPHILS % (AUTO) 76 % (42-75); PLATELET COUNT 245 10^3/uL (130-400); RED BLOOD COUNT 3.16 10^6/uL (4.35-5.85); RED CELL DISTRIBUTION WIDTH 14.1 % (10.0-14.5)
[2018-04-10 13:56] LABS: BUN/CREATININE RATIO 11; CALCIUM 10.1 MG/DL (8.5-10.1); CARBON DIOXIDE 22 MMOL/L (21-32); CHLORIDE 104 MMOL/L (98-107); GFR ESTIMATED > 60; GLUCOSE 127 MG/DL (70-105); SODIUM 138 MMOL/L (135-145)
[2018-04-17 11:15] LABS: BASOPHILS % (AUTO) 0 % (0-10); EOSINOPHILS # (AUTO) 0.1 10^3/uL (0.0-0.3); EOSINOPHILS % (AUTO) 1 % (0-10); HEMATOCRIT 33 % (40-54); HEMOGLOBIN 11.2 G/DL (13.3-17.7); LYMPHOCYTES # (AUTO) 0.9 X 10^3 (1.0-4.0); LYMPHOCYTES % (AUTO) 20 % (12-44); MEAN CORPUSCULAR HEMOGLOBIN 35 PG (25-34); MEAN CORPUSCULAR HGB CONC 34 G/DL (32-36); MEAN CORPUSCULAR VOLUME 103 FL (80-99); MEAN PLATELET VOLUME 8.9 FL (7.4-10.4); MONOCYTES # (AUTO) 0.1 X 10^3 (0.0-1.0); MONOCYTES % (AUTO) 1 % (0-12); NEUTROPHILS # (AUTO) 3.5 X 10^3 (1.8-7.8); NEUTROPHILS % (AUTO) 77 % (42-75); PLATELET COUNT 231 10^3/uL (130-400); RED BLOOD COUNT 3.23 10^6/uL (4.35-5.85); RED CELL DISTRIBUTION WIDTH 14.5 % (10.0-14.5); WHITE BLOOD COUNT 4.5 10^3/uL (4.3-11.0)
[2018-04-17 11:33] LABS: BUN/CREATININE RATIO 9; CALCIUM 9.8 MG/DL (8.5-10.1); CARBON DIOXIDE 24 MMOL/L (21-32); CHLORIDE 106 MMOL/L (98-107); CREATININE SERUM 0.68 MG/DL (0.60-1.30); GFR ESTIMATED > 60; GLUCOSE 103 MG/DL (70-105); SODIUM 140 MMOL/L (135-145)
[2018-05-01 11:25] LABS: BASOPHILS % (AUTO) 1 % (0-10); EOSINOPHILS % (AUTO) 1 % (0-10); HEMATOCRIT 38 % (40-54); HEMOGLOBIN 12.4 G/DL (13.3-17.7); LYMPHOCYTES # (AUTO) 0.8 X 10^3 (1.0-4.0); LYMPHOCYTES % (AUTO) 25 % (12-44); MEAN CORPUSCULAR HEMOGLOBIN 33 PG (25-34); MEAN CORPUSCULAR HGB CONC 33 G/DL (32-36); MEAN CORPUSCULAR VOLUME 102 FL (80-99); MEAN PLATELET VOLUME 9.1 FL (7.4-10.4); MONOCYTES # (AUTO) 0.6 X 10^3 (0.0-1.0); MONOCYTES % (AUTO) 18 % (0-12); NEUTROPHILS # (AUTO) 1.8 X 10^3 (1.8-7.8); NEUTROPHILS % (AUTO) 57 % (42-75); PLATELET COUNT 180 10^3/uL (130-400); RED BLOOD COUNT 3.73 10^6/uL (4.35-5.85); RED CELL DISTRIBUTION WIDTH 14.9 % (10.0-14.5); WHITE BLOOD COUNT 3.3 10^3/uL (4.3-11.0)
[2018-05-01 11:44] LABS: ALANINE AMINOTRANSFERASE 10 U/L (0-55); ALBUMIN 4.1 GM/DL (3.2-4.5); ALKALINE PHOSPHATASE 91 U/L (40-136); BILIRUBIN,TOTAL 0.3 MG/DL (0.1-1.0); BUN/CREATININE RATIO 5; CALCIUM 10.1 MG/DL (8.5-10.1); CARBON DIOXIDE 22 MMOL/L (21-32); CHLORIDE 104 MMOL/L (98-107); CREATININE SERUM 0.78 MG/DL (0.60-1.30); GFR ESTIMATED > 60; GLUCOSE 134 MG/DL (70-105); POTASSIUM 3.9 MMOL/L (3.6-5.0); SODIUM 137 MMOL/L (135-145); TOTAL PROTEIN 7.3 GM/DL (6.4-8.2)
[2018-06-06 14:08] LABS: BASOPHILS % (AUTO) 0 % (0-10); EOSINOPHILS % (AUTO) 0 % (0-10); HEMATOCRIT 41 % (40-54); HEMOGLOBIN 13.4 G/DL (13.3-17.7); LYMPHOCYTES # (AUTO) 0.4 X 10^3 (1.0-4.0); LYMPHOCYTES % (AUTO) 6 % (12-44); MEAN CORPUSCULAR HEMOGLOBIN 31 PG (25-34); MEAN CORPUSCULAR HGB CONC 33 G/DL (32-36); MEAN CORPUSCULAR VOLUME 95 FL (80-99); MEAN PLATELET VOLUME 9.3 FL (7.4-10.4); MONOCYTES # (AUTO) 0.4 X 10^3 (0.0-1.0); MONOCYTES % (AUTO) 6 % (0-12); NEUTROPHILS # (AUTO) 5.9 X 10^3 (1.8-7.8); NEUTROPHILS % (AUTO) 88 % (42-75); PLATELET COUNT 136 10^3/uL (130-400); RED BLOOD COUNT 4.28 10^6/uL (4.35-5.85); RED CELL DISTRIBUTION WIDTH 18.1 % (10.0-14.5); WHITE BLOOD COUNT 6.7 10^3/uL (4.3-11.0)
[2018-06-06 14:28] LABS: ALANINE AMINOTRANSFERASE 23 U/L (0-55); ALBUMIN 3.8 GM/DL (3.2-4.5); ALKALINE PHOSPHATASE 111 U/L (40-136); BILIRUBIN,TOTAL 0.5 MG/DL (0.1-1.0); BUN/CREATININE RATIO 16; CALCIUM 9.8 MG/DL (8.5-10.1); CARBON DIOXIDE 23 MMOL/L (21-32); CHLORIDE 102 MMOL/L (98-107); CREATININE SERUM 0.64 MG/DL (0.60-1.30); GFR ESTIMATED > 60; GLUCOSE 115 MG/DL (70-105); POTASSIUM 4.2 MMOL/L (3.6-5.0); SODIUM 137 MMOL/L (135-145)
[2018-06-14 09:25] LABS: BASOPHILS % (AUTO) 0 % (0-10); EOSINOPHILS % (AUTO) 0 % (0-10); HEMATOCRIT 39 % (40-54); HEMOGLOBIN 12.9 G/DL (13.3-17.7); LYMPHOCYTES # (AUTO) 0.2 X 10^3 (1.0-4.0); LYMPHOCYTES % (AUTO) 2 % (12-44); MEAN CORPUSCULAR HEMOGLOBIN 32 PG (25-34); MEAN CORPUSCULAR HGB CONC 33 G/DL (32-36); MEAN CORPUSCULAR VOLUME 94 FL (80-99); MONOCYTES # (AUTO) 0.1 X 10^3 (0.0-1.0); MONOCYTES % (AUTO) 1 % (0-12); NEUTROPHILS # (AUTO) 6.8 X 10^3 (1.8-7.8); NEUTROPHILS % (AUTO) 97 % (42-75); PLATELET COUNT 139 10^3/uL (130-400); RED BLOOD COUNT 4.09 10^6/uL (4.35-5.85); RED CELL DISTRIBUTION WIDTH 18.3 % (10.0-14.5); WHITE BLOOD COUNT 7.1 10^3/uL (4.3-11.0)
[2018-06-14 09:40] LABS: BUN/CREATININE RATIO 20; CALCIUM 9.6 MG/DL (8.5-10.1); CARBON DIOXIDE 19 MMOL/L (21-32); CHLORIDE 100 MMOL/L (98-107); GFR ESTIMATED > 60; GLUCOSE 366 MG/DL (70-105); POTASSIUM 4.4 MMOL/L (3.6-5.0); SODIUM 133 MMOL/L (135-145)
[2018-06-21 09:11] LABS: BASOPHILS % (AUTO) 0 % (0-10); EOSINOPHILS % (AUTO) 0 % (0-10); HEMATOCRIT 35 % (40-54); HEMOGLOBIN 11.7 G/DL (13.3-17.7); LYMPHOCYTES # (AUTO) 0.2 X 10^3 (1.0-4.0); LYMPHOCYTES % (AUTO) 3 % (12-44); MEAN CORPUSCULAR HEMOGLOBIN 31 PG (25-34); MEAN CORPUSCULAR HGB CONC 33 G/DL (32-36); MEAN CORPUSCULAR VOLUME 94 FL (80-99); MEAN PLATELET VOLUME 9.9 FL (7.4-10.4); MONOCYTES # (AUTO) 0.2 X 10^3 (0.0-1.0); MONOCYTES % (AUTO) 4 % (0-12); NEUTROPHILS # (AUTO) 4.8 X 10^3 (1.8-7.8); NEUTROPHILS % (AUTO) 93 % (42-75); PLATELET COUNT 166 10^3/uL (130-400); RED BLOOD COUNT 3.76 10^6/uL (4.35-5.85); RED CELL DISTRIBUTION WIDTH 18.8 % (10.0-14.5); WHITE BLOOD COUNT 5.2 10^3/uL (4.3-11.0)
[2018-06-21 09:34] LABS: BUN/CREATININE RATIO 15; CALCIUM 9.9 MG/DL (8.5-10.1); CARBON DIOXIDE 19 MMOL/L (21-32); CHLORIDE 100 MMOL/L (98-107); CREATININE SERUM 0.75 MG/DL (0.60-1.30); GFR ESTIMATED > 60; GLUCOSE 332 MG/DL (70-105); POTASSIUM 4.4 MMOL/L (3.6-5.0); SODIUM 134 MMOL/L (135-145)
[~2018-06-23] VITALS: Ht 173.4 cm; Wt 61.7 kg
[~2018-06-23 10:50] MED LIST changes: +CARBOPLATIN 425 MG in D5W 50 ML IV(CANCER CTR) 50 ML IV SCH; +ETOPOSIDE 170 MG in NORMAL SALINE (CANCER CENTER) 500 ML IV SCH; +FAMOTIDINE 20MG/2ML IV (CANCER CTR) IV SCH; +NS IV 1000 ML (CANCER CTR) IV SCH; +ONDANSETRON MDV (CANCER CENTER 16 MG, DEXAMETHASONE INJECTION 10 MG in NS (IVPB) CANCER... IV SCH; +PACLITAXEL 120 MG in NORMAL SALINE (CANCER CENTER) 250 ML IV SCH; +PALONOSETRON HCL 0.25 MG, DEXAMETHASONE INJECTION 10 MG in NS (IVPB) CANCER CENTER 50 ML IV SCH; +diphenhydrAMINE 25 MG TAB (BENADRYL) CANCER CENTER PO SCH; +diphenhydrAMINE 50 MG/ML INJ (CANCER CENTER) IV PRN
[2018-06-26] MEDS ORDERED: CEFD300C3 PO (13:21)
[2018-06-26] MEDS ORDERED: ALBU2.5V4 INH (13:21)
[2018-06-26] MEDS ORDERED: LEVO500T80 PO (13:21)
== END 2018-07-02 | disposition home or self-care (01) ==
LOC: ONC 10:50
PROVIDERS: ATTEND Internal Medicine Hematology & Oncology
DX: Z51.0 Encounter for antineoplastic radiation therapy (principal); Z51.11 Encounter for antineoplastic chemotherapy; C34.90 Malignant neoplasm of unspecified part of unspecified bronchus or lung; C78.7 Secondary malignant neoplasm of liver and intrahepatic bile duct; C78.89 Secondary malignant neoplasm of other digestive organs; C79.70 Secondary malignant neoplasm of unspecified adrenal gland; C77.3 Secondary and unspecified malignant neoplasm of axilla and upper limb lymph nodes
CPT/HCPCS: 36415; 36591; 77290; 77295; 77300; 77334; 77336; 77417; 80048; 80053; 83615; 85025; 96360; 96375; 96413; 96417; 99204; 99213

== ENCOUNTER 2018-06-26 10:49 | Emergency (ER) | payer OTHER ==
[~2018-06-26] VITALS: Ht 175.3 cm; Wt 53.1 kg
[~2018-06-26 10:49] MED LIST changes: -CARBOPLATIN 425 MG in D5W 50 ML IV(CANCER CTR) 50 ML IV SCH; -ETOPOSIDE 170 MG in NORMAL SALINE (CANCER CENTER) 500 ML IV SCH; -FAMOTIDINE 20MG/2ML IV (CANCER CTR) IV SCH; -NS IV 1000 ML (CANCER CTR) IV SCH; -ONDANSETRON MDV (CANCER CENTER 16 MG, DEXAMETHASONE INJECTION 10 MG in NS (IVPB) CANCER... IV SCH; -PACLITAXEL 120 MG in NORMAL SALINE (CANCER CENTER) 250 ML IV SCH; -PALONOSETRON HCL 0.25 MG, DEXAMETHASONE INJECTION 10 MG in NS (IVPB) CANCER CENTER 50 ML IV SCH; -diphenhydrAMINE 25 MG TAB (BENADRYL) CANCER CENTER PO SCH; -diphenhydrAMINE 50 MG/ML INJ (CANCER CENTER) IV PRN
[2018-06-26] MEDS ORDERED: morphine INJ 10 MG/ML 1ML (SYR OR VIAL) IVP STA (11:20)
[2018-06-26] MEDS ORDERED: RT-ALBUTEROL/IPRATROPIUM 3 ML (DUONEB) VIAL ONE (11:21)
--- NOTE | 2018-06-26 11:29 | ED Respiratory ---
General Chief Complaint: Respiratory Problems Stated Complaint: CANCER PT/SOB Nursing Triage Note: PT REPORTS SOB. PT TOOK 8MG OF DEXAMETHASONE, AND TWO PUFFS OF PRO AIR INHALER AND HAD SOME RELIEF BUT STILL COMPLAINS OF SOB. PT IS CANCER PT AND RECEIVED 2L OF FLUIDS LAST WEEK INSTEAD OF HIS USUAL 1L. Source: patient Exam Limitations: no limitations History of Present Illness Date Seen by Provider: Jun 26, 2018 Time Seen by Provider: 11:13 Initial Comments Here with report of shortness of air but is worse today. Does have history of lung cancer with metastasis to multiple sites. Has fairly significant mediastinal involvement. He is on chemotherapy after failing a different chemotherapy. Was seen last week for his chemotherapy and on Tuesday had an additional liter of fluid given. Today he arrives tachycardic without fever and short of breath. He did do a breathing treatment this morning and that helped a little bit but respiratory problems continue. His is a nurse and she is assisting in the care of him. Patient's has central chest discomfort that is typical for his cancer pain. He missed his dose of OxyContin IR do to coming here. Denies nausea or vomiting. Has been drinking okay. Timing/Duration: yesterday, getting worse Severity: moderate Prior Episodes/Possible Cause: occasional episodes Modifying Factors: Worse With Activity; Improves With Albuterol Inhaler, Improves With Albuterol Nebulizer; Worse With Coughing; Improves With Rest Associated Symptoms: No fever/chills; nasal congestion, shortness of breath Allergies and Home Medications Allergies Coded Allergies: No Known Drug Allergies (Unverified , 02/15/18) Home Medications Albuterol Sulfate 2.5 Mg/3 Ml Vial.neb, 2.5 MG INH Q4H PRN for WHEEZING Prescribed by: MANJINDER HENSLEY on 06/26/18 1321 Cefdinir 300 Mg Capsule, 300 MG PO BID Prescribed by: MANJINDER HENSLEY on 06/26/18 1321 Dexamethasone 4 Mg Tablet, 4 MG PO TID, (Reported) Levofloxacin 500 Mg Tablet, 500 MG PO DAILY Prescribed by: MANJINDER HENSLEY on 06/26/18 132 Lorazepam 0.5 Mg Tablet, 0.5 MG PO TID PRN for ANXIETY, (Reported) Ondansetron HCl 8 Mg Tablet, 8 MG PO Q4H PRN for NAUSEA/VOMITING-1ST LINE, ( Reported) Oxycodone HCl 5 Mg Tablet, 5-10 MG PO Q4H PRN for PAIN-MILD TO MODERATE, ( Reported) Oxycodone HCl 10 Mg Tab.er.12h, 10 MG PO BID, (Reported) Pantoprazole Sodium 40 Mg Tablet.dr, 40 MG PO DAILY, (Reported) Prochlorperazine Maleate 10 Mg Tablet, 10 MG PO Q6H PRN for NAUSEA/VOMITING-2ND LINE, (Reported) Patient Home Medication List Home Medication List Reviewed: Yes Review of Systems Review of Systems Constitutional: see HPI; No chills, No fever EENTM: No nose congestion, No throat pain Respiratory: cough, dyspnea on exertion, short of breath Cardiovascular: no symptoms reported Gastrointestinal: No abdominal pain, No nausea, No vomiting Genitourinary: no symptoms reported Musculoskeletal: No back pain; muscle weakness Skin: no symptoms reported Psychiatric/Neurological: No Symptoms Reported All Other Systems Reviewed Negative Unless Noted: Yes Past Dfkhrts-Woqmhd-Qmanxn Hx Past Med/Social Hx: Reviewed Nursing Past Med/Soc Hx Patient Social History Alcohol Use: Denies Use Recreational Drug Use: No Smoking Status: Current Everyday Smoker Type Used: Cigarettes Recent Foreign Travel: No Contact w/Someone Who Travel: No Recent Infectious Disease Expo: No Recent Hopitalizations: No Physical Abuse: No Sexual Abuse: No Seasonal Allergies Seasonal Allergies: No Past Medical History Surgeries: No Respiratory: Yes COPD Cardiac: No Neurological: No Genitourinary: No Gastrointestinal: No Musculoskeletal: Yes Chronic Back Pain Endocrine: No HEENT: No Cancer: Yes Brain, Liver, Lung, Pancreatic Did You Recieve Any Treatments: Yes What Type of Treatment Did You: Chemotherapy Psychosocial: No Depression Integumentary: No Blood Disorders: No Family Medical History Reviewed Nursing Family Hx Physical Exam Vital Signs - First Documented 06/26/18 06/26/18 10:51 11:28 Temp 98.7 Pulse 133 Resp 22 B/P (MAP) 117/86 (96) Pulse Ox 94 O2 Delivery Room Air Capillary Refill : Less Than 3 Seconds Height: 5'9.00" Weight: 117lbs. 0.0oz. 53.823259ds; 19.2 BMI Method:Stated General Appearance: WD/WN, no apparent distress HEENT: PERRL/EOMI, pharynx normal Neck: full range of motion, supple Respiratory: crackles (bilateral with left greater than right), rhonchi (left- sided), wheezing (bilateral trace wheezes), other (tachypnic) Cardiovascular: no murmur Gastrointestinal: non tender, soft Extremities: non-tender, normal inspection Neurologic/Psychiatric: alert, oriented x 3 Skin: normal color, warm/dry Progress/Results/Core Measures Suspected Sepsis Recent Fever Within 48 Hours: No Infection Criteria Present: None New/Unexplained Altered Menta: No Sepsis Screen: No Definite Risk SIRS Temperature:98.7 Pulse: 133 Respiratory Rate: 22 Laboratory Tests 06/26/18 11:46: White Blood Count 6.5 Blood Pressure 117 /86 Mean: 96 Laboratory Tests 06/26/18 11:46: Creatinine 0.63, Platelet Count 249, Total Bilirubin 0.7 Results/Orders Lab Results Laboratory Tests Test 06/26/18 11:46 Range/Units White Blood Count 6.5 4.3-11.0 10^3/uL Red Blood Count 3.58 L 4.35-5.85 10^6/uL Hemoglobin 11.1 L 13.3-17.7 G/DL Hematocrit 33 L 40-54 % Mean Corpuscular Volume 93 80-99 FL Mean Corpuscular Hemoglobin 31 25-34 PG Mean Corpuscular Hemoglobin Concent 33 32-36 G/DL Red Cell Distribution Width 19.5 H 10.0-14.5 % Platelet Count 249 130-400 10^3/uL Mean Platelet Volume 10.0 7.4-10.4 FL Neutrophils (%) (Auto) 94 H 42-75 % Lymphocytes (%) (Auto) 3 L 12-44 % Monocytes (%) (Auto) 3 0-12 % Eosinophils (%) (Auto) 0 0-10 % Basophils (%) (Auto) 1 0-10 % Neutrophils # (Auto) 6.1 1.8-7.8 X 10^3 Lymphocytes # (Auto) 0.2 L 1.0-4.0 X 10^3 Monocytes # (Auto) 0.2 0.0-1.0 X 10^3 Eosinophils # (Auto) 0.0 0.0-0.3 10^3/uL Basophils # (Auto) 0.0 0.0-0.1 10^3/uL Neutrophils % (Manual) 63 % Lymphocytes % (Manual) 3 % Monocytes % (Manual) 3 % Eosinophils % (Manual) 0 % Basophils % (Manual) 0 % Myelocytes % 2 % Band Neutrophils 29 % Anisocytosis SLIGHT Sodium Level 136 135-145 MMOL/L Potassium Level 3.9 3.6-5.0 MMOL/L Chloride Level 101 98-107 MMOL/L Carbon Dioxide Level 21 21-32 MMOL/L Anion Gap 14 5-14 MMOL/L Blood Urea Nitrogen 11 7-18 MG/DL Creatinine 0.63 0.60-1.30 MG/DL Estimat Glomerular Filtration Rate > 60 BUN/Creatinine Ratio 17 Glucose Level 199 H 70-105 MG/DL Calcium Level 9.6 8.5-10.1 MG/DL Corrected Calcium 10.2 H 8.5-10.1 MG/DL Magnesium Level 1.6 L 1.8-2.4 MG/DL Total Bilirubin 0.7 0.1-1.0 MG/DL Aspartate Amino Transf (AST/SGOT) 13 5-34 U/L Alanine Aminotransferase (ALT/SGPT) 34 0-55 U/L Alkaline Phosphatase 180 H 40-136 U/L C-Reactive Protein High Sensitivity 22.82 H 0.00-0.50 MG/DL Total Protein 6.5 6.4-8.2 GM/DL Albumin 3.3 3.2-4.5 GM/DL My Orders Orders - MANJINDER HENSLEY MD Cbc With Automated Diff (06/26/18 11:20) Comprehensive Metabolic Panel (06/26/18 11:20) Hs C Reactive Protein (06/26/18 11:20) Magnesium (06/26/18 11:20) Saline Lock/Iv-Start (06/26/18 11:20) Chest Pa/Lat (2 View) (06/26/18 11:20) Albuterol/Ipra Inhalation Soln (Duoneb I (06/26/18 11:30) Morphine Injection (Morphine Injection (06/26/18 11:20) Albuterol/Ipra Inhalation Soln (Duoneb I (06/26/18 11:21) Manual Differential (06/26/18 11:46) Dexamethasone Injection (Decadron Inject (06/26/18 13:15) Ceftriaxone For Iv Use (Rocephin For I (06/26/18 13:15) Levofloxacin Tablet (Levaquin Tablet) (06/26/18 13:08) Blood Culture (06/26/18 13:08) Medications Given in ED Current Medications Medications Dose Ordered Sig/Cleo Route Start Time Stop Time Status Last Admin Dose Admin Albuterol/ Ipratropium 3 ml ONCE ONCE INH 06/26/18 11:30 06/26/18 11:31 DC 06/26/18 11:25 3 ML Ceftriaxone Sodium 1000 mg/ Sodium Chloride 60 ml @ 100 mls/hr ONCE ONCE IV 06/26/18 13:15 06/26/18 13:50 DC 06/26/18 13:31 100 MLS/HR Dexamethasone Sodium Phosphate 10 mg ONCE ONCE IM 06/26/18 13:15 06/26/18 13:16 DC 06/26/18 13:31 10 MG Vital Signs/I&O 06/26/18 06/26/18 10:51 11:28 Temp 98.7 Pulse 133 Resp 22 B/P (MAP) 117/86 (96) Pulse Ox 94 92 O2 Delivery Room Air Capillary Refill : Less Than 3 Seconds Blood Pressure Mean: 96 Progress Note : Progress Note Seen and evaluated. IV via port access. Labs, chest x-ray and DuoNeb treatment ordered. Morphine 5 mg IV ordered. Monitor patient. 1300: Pneumonia noted. Blood cultures ordered. Did have a long conversation with the patient and family. He would like to go home. We will initiate Rocephin and 1 g IV as well as Levaquin 500 mg by mouth. Decadron 10 mg IV ordered. Patient will continue outpatient Levaquin and Omnicef for 7 more days. We will also prescribe albuterol nebs for home. Patient family comfortable with this plan and it is their preference. I believe this would be a reasonable approach given his current findings and condition. Discharged home with return precautions. Patient family verbalized understanding instructions and agreement with plan. Diagnostic Imaging Diagonstic Imaging: Xray Plain Films/CT/US/NM/MRI: chest Comments NAME: SONIDO CHE MED REC#: [id number] PT STATUS: REG ER : 1965 PHYSICIAN: MANJINDER HENSLEY MD ADMIT DATE: 06/26/18/ER Signed Date of Exam: 06/26/18 CHEST PA/LAT (2 VIEW) INDICATION: Shortness of breath. TIME OF EXAM: 12:19 p.m. COMPARISON: No prior studies are available for comparison. FINDINGS: Right chest wall Port has tip overlying the SVC. There appears to be some consolidation in the left base as well as a small amount of pleural fluid blunting the left costophrenic angle. The right lung is fairly clear although there is a small nodular density in right [id number] lung field. The pulmonary vascularity is unremarkable. No pneumothorax is detected. IMPRESSION: There appears to be some left basilar consolidation and pleural fluid, suggestive of pneumonia. Dictated by: Dictated on workstation # [id number] Dict: 06/26/18 1203 Trans: 06/26/18 1232 Interpreted by: KIMMY ENGLISH MD Electronically signed by: KIMMY ENGLISH MD 06/26/18 1232 Departure Impression Primary Impression: Left lower lobe pneumonia Qualified Codes: J18.1 - Lobar pneumonia, unspecified organism Additional Impression: Lung cancer metastatic to brain Disposition: 01 HOME, SELF-CARE Condition: Stable Departure-Patient Inst. Decision time for Depature: 13:22 Referrals: NO,LOCAL PHYSICIAN (PCP/Family) Primary Care Physician Patient Instructions: Pneumonia, Adult (DC) Add. Discharge Instructions: All discharge instructions reviewed with patient and/or family. Voiced understanding. Use nebulizer treatments every 4-6 hours as needed for wheezing. Take medications as directed. You may take the dexamethasone 8 mg daily for the next 3 or 4 days and then return to normal dosing. Follow-up with the cancer center later this week or early next week. Return for worse pain, fever, vomiting, weakness, breathing problems or other concerns as needed. Scripts Levofloxacin (Levofloxacin) 500 Mg Tablet 500 MG PO DAILY, #7 TAB 0 Refills Prov: MANJINDER HENSLEY MD 06/26/18 Cefdinir (Cefdinir) 300 Mg Capsule 300 MG PO BID, #14 CAP 0 Refills Prov: MANJINDER HENSLEY MD 06/26/18 Albuterol Sulfate (Albuterol Sulfate) 2.5 Mg/3 Ml Vial.neb 2.5 MG INH Q4H PRN for WHEEZING, #50 EA 1 Refill Prov: MANJINDER HENSLEY MD 06/26/18 MANJINDER HENSLEY MD Jun 26, 2018 11:29
[2018-06-26] MEDS ORDERED: RT-ALBUTEROL/IPRATROPIUM 3 ML (DUONEB) VIAL INH ONE (11:30)
[2018-06-26 11:51] LABS: BASOPHILS % (AUTO) 1 % (0-10); EOSINOPHILS % (AUTO) 0 % (0-10); HEMATOCRIT 33 % (40-54); HEMOGLOBIN 11.1 G/DL (13.3-17.7); LYMPHOCYTES # (AUTO) 0.2 X 10^3 (1.0-4.0); LYMPHOCYTES % (AUTO) 3 % (12-44); MEAN CORPUSCULAR HEMOGLOBIN 31 PG (25-34); MEAN CORPUSCULAR HGB CONC 33 G/DL (32-36); MEAN CORPUSCULAR VOLUME 93 FL (80-99); MONOCYTES # (AUTO) 0.2 X 10^3 (0.0-1.0); MONOCYTES % (AUTO) 3 % (0-12); NEUTROPHILS # (AUTO) 6.1 X 10^3 (1.8-7.8); NEUTROPHILS % (AUTO) 94 % (42-75); PLATELET COUNT 249 10^3/uL (130-400); RED BLOOD COUNT 3.58 10^6/uL (4.35-5.85); RED CELL DISTRIBUTION WIDTH 19.5 % (10.0-14.5); WHITE BLOOD COUNT 6.5 10^3/uL (4.3-11.0)
--- NOTE | 2018-06-26 12:12 | Diagnostic Imaging Report ---
INDICATION: Shortness of breath. TIME OF EXAM: 12:19 p.m. COMPARISON: No prior studies are available for comparison. FINDINGS: Right chest wall Port has tip overlying the SVC. There appears to be some consolidation in the left base as well as a small amount of pleural fluid blunting the left costophrenic angle. The right lung is fairly clear although there is a small nodular density in right [id number] lung field. The pulmonary vascularity is unremarkable. No pneumothorax is detected. IMPRESSION: There appears to be some left basilar consolidation and pleural fluid, suggestive of pneumonia. Dictated by: Dictated on workstation # [id number]
[2018-06-26 12:29] LABS: ALANINE AMINOTRANSFERASE 34 U/L (0-55); ALBUMIN 3.3 GM/DL (3.2-4.5); ALKALINE PHOSPHATASE 180 U/L (40-136); BILIRUBIN,TOTAL 0.7 MG/DL (0.1-1.0); BUN/CREATININE RATIO 17; CALCIUM 9.6 MG/DL (8.5-10.1); CARBON DIOXIDE 21 MMOL/L (21-32); CHLORIDE 101 MMOL/L (98-107); CREATININE SERUM 0.63 MG/DL (0.60-1.30); GFR ESTIMATED > 60; GLUCOSE 199 MG/DL (70-105); MAGNESIUM 1.6 MG/DL (1.8-2.4); POTASSIUM 3.9 MMOL/L (3.6-5.0); SODIUM 136 MMOL/L (135-145); TOTAL PROTEIN 6.5 GM/DL (6.4-8.2)
[2018-06-26 12:47] LABS: BAND NEUTROPHILS 29 %; BASOPHILS % (MANUAL) 0 %; EOSINOPHILS % (MANUAL) 0 %; LYMPHOCYTES % (MANUAL) 3 %; MONOCYTES % (MANUAL) 3 %; NEUTROPHILS % (MANUAL) 63 %
[2018-06-26 12:48] LABS: ANISOCYTOSIS SLIGHT; MYELOCYTES % 2 %
[2018-06-26] MEDS ORDERED: LEVOFLOXACIN 500 MG TAB (LEVAQUIN) PO STA (13:08)
[2018-06-26] MEDS ORDERED: cefTRIAXone FOR IV USE 1,000 MG in NS (IVPB) 50 ML IV ONE (13:15)
[2018-06-26] MEDS ORDERED: DEXAMETHASONE 10 MG/ML (DECADRON) 1 ML VIAL IM ONE (13:15)
[2018-06-26] MEDS ORDERED: CEFD300C3 PO (13:21)
[2018-06-26] MEDS ORDERED: LEVO500T80 PO (13:21)
[2018-06-26] MEDS ORDERED: ALBU2.5V4 INH (13:21)
[2018-06-26 14:23] VITALS: BP 107/77
== END 2018-06-26 14:23 | disposition home or self-care (01) ==
LOC: EDUNIT# 10:49 → ER 10:50
DX: J18.1 Lobar pneumonia, unspecified organism (principal); C34.90 Malignant neoplasm of unspecified part of unspecified bronchus or lung; C79.31 Secondary malignant neoplasm of brain; C78.7 Secondary malignant neoplasm of liver and intrahepatic bile duct; C78.89 Secondary malignant neoplasm of other digestive organs; F32.9 Major depressive disorder, single episode, unspecified; J44.9 Chronic obstructive pulmonary disease, unspecified; F17.210 Nicotine dependence, cigarettes, uncomplicated; Z92.21 Personal history of antineoplastic chemotherapy; Z79.51 Long term (current) use of inhaled steroids; Z79.52 Long term (current) use of systemic steroids
CPT/HCPCS: 36415; 36556; 71046; 80053; 83735; 85007; 85027; 86141; 87040; 94640

== ENCOUNTER 2018-07-17 08:59 | Outpatient (RCR) | payer OTHER ==
[2018-07-05 09:20] LABS: BASOPHILS % (AUTO) 0 % (0-10); EOSINOPHILS % (AUTO) 0 % (0-10); HEMATOCRIT 32 % (40-54); HEMOGLOBIN 10.4 G/DL (13.3-17.7); LYMPHOCYTES # (AUTO) 0.3 X 10^3 (1.0-4.0); LYMPHOCYTES % (AUTO) 2 % (12-44); MEAN CORPUSCULAR HEMOGLOBIN 31 PG (25-34); MEAN CORPUSCULAR HGB CONC 32 G/DL (32-36); MEAN CORPUSCULAR VOLUME 95 FL (80-99); MEAN PLATELET VOLUME 9.9 FL (7.4-10.4); MONOCYTES # (AUTO) 0.4 X 10^3 (0.0-1.0); MONOCYTES % (AUTO) 3 % (0-12); NEUTROPHILS # (AUTO) 16.5 X 10^3 (1.8-7.8); NEUTROPHILS % (AUTO) 96 % (42-75); PLATELET COUNT 227 10^3/uL (130-400); RED BLOOD COUNT 3.39 10^6/uL (4.35-5.85); RED CELL DISTRIBUTION WIDTH 20.6 % (10.0-14.5); WHITE BLOOD COUNT 17.2 10^3/uL (4.3-11.0)
[2018-07-05 09:45] LABS: ALANINE AMINOTRANSFERASE 25 U/L (0-55); ALBUMIN 3.1 GM/DL (3.2-4.5); ALKALINE PHOSPHATASE 164 U/L (40-136); BILIRUBIN,TOTAL 0.2 MG/DL (0.1-1.0); BUN/CREATININE RATIO 10; CALCIUM 9.3 MG/DL (8.5-10.1); CARBON DIOXIDE 21 MMOL/L (21-32); CHLORIDE 100 MMOL/L (98-107); CREATININE SERUM 0.73 MG/DL (0.60-1.30); GFR ESTIMATED > 60; GLUCOSE 400 MG/DL (70-105); MAGNESIUM 1.8 MG/DL (1.8-2.4); POTASSIUM 3.9 MMOL/L (3.6-5.0); SODIUM 135 MMOL/L (135-145); TOTAL PROTEIN 6.2 GM/DL (6.4-8.2)
[2018-07-10 09:37] LABS: BASOPHILS % (AUTO) 0 % (0-10); EOSINOPHILS % (AUTO) 0 % (0-10); HEMATOCRIT 33 % (40-54); HEMOGLOBIN 10.8 G/DL (13.3-17.7); LYMPHOCYTES # (AUTO) 0.3 X 10^3 (1.0-4.0); LYMPHOCYTES % (AUTO) 3 % (12-44); MEAN CORPUSCULAR HEMOGLOBIN 31 PG (25-34); MEAN CORPUSCULAR HGB CONC 33 G/DL (32-36); MEAN CORPUSCULAR VOLUME 94 FL (80-99); MEAN PLATELET VOLUME 9.1 FL (7.4-10.4); MONOCYTES # (AUTO) 0.6 X 10^3 (0.0-1.0); MONOCYTES % (AUTO) 5 % (0-12); NEUTROPHILS # (AUTO) 9.5 X 10^3 (1.8-7.8); NEUTROPHILS % (AUTO) 91 % (42-75); PLATELET COUNT 213 10^3/uL (130-400); RED BLOOD COUNT 3.54 10^6/uL (4.35-5.85); RED CELL DISTRIBUTION WIDTH 20.2 % (10.0-14.5); WHITE BLOOD COUNT 10.4 10^3/uL (4.3-11.0)
[2018-07-10 10:00] LABS: ALANINE AMINOTRANSFERASE 18 U/L (0-55); ALBUMIN 3.2 GM/DL (3.2-4.5); ALKALINE PHOSPHATASE 283 U/L (40-136); BILIRUBIN,TOTAL 0.6 MG/DL (0.1-1.0); BUN/CREATININE RATIO 11; CALCIUM 9.4 MG/DL (8.5-10.1); CARBON DIOXIDE 23 MMOL/L (21-32); CHLORIDE 98 MMOL/L (98-107); CREATININE SERUM 0.65 MG/DL (0.60-1.30); GFR ESTIMATED > 60; GLUCOSE 159 MG/DL (70-105); POTASSIUM 4.3 MMOL/L (3.6-5.0); SODIUM 132 MMOL/L (135-145)
[~2018-07-17] VITALS: Ht 173.4 cm; Wt 49.4 kg
[~2018-07-17 08:59] MED LIST changes: +ALBU2.5V4 INH; +CEFD300C3 PO; +FAMOTIDINE 20MG/2ML IV (CANCER CTR) IV SCH; +LEVO500T80 PO; +NS IV 1000 ML (CANCER CTR) IV SCH; +ONDANSETRON MDV (CANCER CENTER 16 MG, DEXAMETHASONE INJECTION 10 MG in NS (IVPB) CANCER... IV SCH; +diphenhydrAMINE 25 MG TAB (BENADRYL) CANCER CENTER PO SCH
[2018-07-17 09:19] LABS: BASOPHILS % (AUTO) 0 % (0-10); EOSINOPHILS # (AUTO) 0.1 10^3/uL (0.0-0.3); EOSINOPHILS % (AUTO) 1 % (0-10); HEMATOCRIT 31 % (40-54); HEMOGLOBIN 9.6 G/DL (13.3-17.7); LYMPHOCYTES # (AUTO) 0.5 X 10^3 (1.0-4.0); LYMPHOCYTES % (AUTO) 8 % (12-44); MEAN CORPUSCULAR HEMOGLOBIN 30 PG (25-34); MEAN CORPUSCULAR HGB CONC 31 G/DL (32-36); MEAN CORPUSCULAR VOLUME 96 FL (80-99); MEAN PLATELET VOLUME 9.7 FL (7.4-10.4); MONOCYTES # (AUTO) 0.5 X 10^3 (0.0-1.0); MONOCYTES % (AUTO) 8 % (0-12); NEUTROPHILS # (AUTO) 5.1 X 10^3 (1.8-7.8); NEUTROPHILS % (AUTO) 82 % (42-75); PLATELET COUNT 249 10^3/uL (130-400); RED BLOOD COUNT 3.22 10^6/uL (4.35-5.85); RED CELL DISTRIBUTION WIDTH 21.4 % (10.0-14.5); WHITE BLOOD COUNT 6.2 10^3/uL (4.3-11.0)
[2018-07-17 09:38] LABS: BUN/CREATININE RATIO 11; CALCIUM 9.1 MG/DL (8.5-10.1); CARBON DIOXIDE 20 MMOL/L (21-32); CHLORIDE 105 MMOL/L (98-107); CREATININE SERUM 0.65 MG/DL (0.60-1.30); GFR ESTIMATED > 60; GLUCOSE 135 MG/DL (70-105); POTASSIUM 3.9 MMOL/L (3.6-5.0); SODIUM 138 MMOL/L (135-145)
== END 2018-07-21 10:01 | disposition home or self-care (01) ==
LOC: ONC 08:59
PROVIDERS: ATTEND Internal Medicine Hematology & Oncology
DX: Z51.11 Encounter for antineoplastic chemotherapy (principal); C34.92 Malignant neoplasm of unspecified part of left bronchus or lung; C79.31 Secondary malignant neoplasm of brain; C78.7 Secondary malignant neoplasm of liver and intrahepatic bile duct; C78.89 Secondary malignant neoplasm of other digestive organs; C79.72 Secondary malignant neoplasm of left adrenal gland; C77.3 Secondary and unspecified malignant neoplasm of axilla and upper limb lymph nodes; F17.210 Nicotine dependence, cigarettes, uncomplicated; R73.9 Hyperglycemia, unspecified; T38.0X5A Adverse effect of glucocorticoids and synthetic analogues, initial encounter
CPT/HCPCS: 36591; 80048; 80053; 83615; 83735; 85025; 96375; 96413

== ENCOUNTER → 2018-07-21 | Outpatient (CLI) | payer OTHER ==
[~2018-07-21] MED LIST changes: -FAMOTIDINE 20MG/2ML IV (CANCER CTR) IV SCH; -NS IV 1000 ML (CANCER CTR) IV SCH; -ONDANSETRON MDV (CANCER CENTER 16 MG, DEXAMETHASONE INJECTION 10 MG in NS (IVPB) CANCER... IV SCH; -diphenhydrAMINE 25 MG TAB (BENADRYL) CANCER CENTER PO SCH
== END ==
LOC: ONC 10:52
PROVIDERS: ATTEND Internal Medicine Hematology & Oncology
DX: C34.92 Malignant neoplasm of unspecified part of left bronchus or lung (principal); C79.31 Secondary malignant neoplasm of brain; C78.7 Secondary malignant neoplasm of liver and intrahepatic bile duct; C78.89 Secondary malignant neoplasm of other digestive organs; C79.72 Secondary malignant neoplasm of left adrenal gland; C77.3 Secondary and unspecified malignant neoplasm of axilla and upper limb lymph nodes; F17.210 Nicotine dependence, cigarettes, uncomplicated; R73.9 Hyperglycemia, unspecified; T38.0X5A Adverse effect of glucocorticoids and synthetic analogues, initial encounter
CPT/HCPCS: 99213